=== PATIENT | male | born 1990 | race American Indian/Alaskan Native ===

== ENCOUNTER 2017-05-09 10:37 | Inpatient (IN) | payer OTHER ==
[2017-05-09] MEDS ORDERED: GEODON IM ONE (11:03)
[2017-05-09] MEDS ORDERED: WATER FOR INJ (PF) 10 ML ONE (11:12)
[2017-05-09] MEDS ORDERED: ATIVAN ONE (11:15)
[2017-05-09] MEDS ORDERED: BENADRYL ONE (11:17)
[2017-05-09] MEDS ORDERED: ATIVAN IM ONE (11:17)
[2017-05-09] MEDS ORDERED: BENADRYL IM ONE (11:17)
[2017-05-09] MEDS ORDERED: XYLOCAINE 2% INFILTRATI ONE (11:32)
[2017-05-09 11:59] LABS: Basophils % (Auto) 0.4 % (0.0-1.8); Eosinophils % (Auto) 0.1 % (0.0-4.3); Hematocrit 47.4 % (35.5-45.6); Hemoglobin 15.7 gm/dl (11.8-15.2); Mean Corpuscular HGB Conc 33 % (32-34); Mean Corpuscular Hemoglobin 31 pg (28-32); Mean Corpuscular Volume 94 fl (84-94); Platelet Count 126 K/mm3 (140-440); Red Blood Count 5.02 M/mm3 (3.65-5.03); Red Cell Distribution Width 13.8 % (13.2-15.2); White Blood Count 10.3 K/mm3 (4.5-11.0)
--- NOTE | 2017-05-09 12:02 | Cat Scan Report ---
CT scan of head without IV contrast: History: Trauma. Findings: Ventricles are normal in size and midline in location. No evidence of acute ischemia, hemorrhage or mass. No extra-axial fluid collection. Normal brainstem and cerebellum. Normal sinuses and mastoid air cells. Impression: No acute intracranial abnormality.
[2017-05-09 12:13] LABS: Creatine Kinase MB 11.8 ng/mL (0.0-4.0)
[2017-05-09 12:14] LABS: Alanine Aminotransferase 19 units/L (7-56); Albumin 4.5 g/dL (3.9-5); Albumin/Globulin Ratio 1.6 %; Alkaline Phosphatase 103 units/L (35-129); Anion Gap 25 mmol/L; BUN/Creatinine Ratio 6.42; Blood Urea Nitrogen 9 mg/dL (9-20); Calcium 8.9 mg/dL (8.4-10.2); Carbon Dioxide 17 mmol/L (22-30); Chloride 103.1 mmol/L (98-107); Glucose 83 mg/dL (75-100); Potassium 3.5 mmol/L (3.6-5.0); Sodium 142 mmol/L (137-145); Total Protein 7.3 g/dL (6.3-8.2)
[2017-05-09] MEDS ORDERED: NACL 0.9% 500 ML IR ONE (13:22)
[2017-05-09] MEDS ORDERED: NACL 0.9% 1000 ML 1,000 ML IV ONE (14:07)
[2017-05-09 17:15] LABS: Creatine Kinase MB 16.3 ng/mL (0.0-4.0)
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
[2017-05-09] MEDS ORDERED: ZOFRAN IV PRN (18:20)
[2017-05-09] MEDS ORDERED: PROVENTIL IH PRN (18:20)
[2017-05-09 18:56] LABS: Urine Drugs of Abuse Note Disclamer
[2017-05-09 19:07] LABS: Bilirubin,Urine NEG (Negative); Blood,Urine NEG (Negative); Ketones,Urine NEG (Negative); Leukocyte Esterase,Urine TR (Negative); Nitrite,Urine NEG (Negative); Protein,Urine <15 mg/dL mg/dL (Negative); Urobilinogen,Urine < 2.0 mg/dL (<2.0)
[2017-05-09] MEDS ORDERED: SODIUM BICARBONATE 150 MEQ in D5W 1,000 ML IV ONE (19:30)
[2017-05-09] MEDS: TYLENOL PO PRN (22:31)
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
[2017-05-10] MEDS ORDERED: ATIVAN IV PRN (10:16)
[2017-05-10 11:00] LABS: BUN/Creatinine Ratio 8.33; Blood Urea Nitrogen 10 mg/dL (9-20); Calcium 8.4 mg/dL (8.4-10.2); Carbon Dioxide 27 mmol/L (22-30); Chloride 103.3 mmol/L (98-107); Glucose 91 mg/dL (75-100); Potassium 3.7 mmol/L (3.6-5.0); Sodium 142 mmol/L (137-145)
[2017-05-10 11:04] LABS: Anion Gap 15 mmol/L
[2017-05-10 11:12] LABS: Creatine Kinase 4342 units/L (55-170)
[2017-05-10] MEDS: TYLENOL PO PRN ×2 (15:31→21:12)
[2017-05-10] MEDS: NACL 0.9% 1000 ML 1,000 ML IV SCH ×2 (19:10→23:55)
[2017-05-11] MEDS: NACL 0.9% 1000 ML 1,000 ML IV SCH ×4 (04:33→20:58)
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
[2017-05-11 08:42] LABS: Anion Gap 15 mmol/L; BUN/Creatinine Ratio 7.27; Blood Urea Nitrogen 8 mg/dL (9-20); Calcium 8.1 mg/dL (8.4-10.2); Carbon Dioxide 26 mmol/L (22-30); Chloride 107.5 mmol/L (98-107); Glucose 86 mg/dL (75-100); Potassium 4.2 mmol/L (3.6-5.0); Sodium 144 mmol/L (137-145)
[2017-05-11 08:56] LABS: Creatine Kinase 3285 units/L (55-170)
[2017-05-11] MEDS: TYLENOL PO PRN ×2 (14:22→20:58)
[2017-05-12] MEDS: NACL 0.9% 1000 ML 1,000 ML IV SCH ×2 (01:59→06:35)
[2017-05-12 06:52] LABS: Chloride 108.2 mmol/L (98-107); Potassium 4.1 mmol/L (3.6-5.0); Sodium 142 mmol/L (137-145)
[2017-05-12 06:53] LABS: Anion Gap 12 mmol/L; BUN/Creatinine Ratio 5.55; Blood Urea Nitrogen 5 mg/dL (9-20); Calcium 8.3 mg/dL (8.4-10.2); Carbon Dioxide 26 mmol/L (22-30); Creatine Kinase 1998 units/L (55-170); Glucose 90 mg/dL (75-100)
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
[2017-05-12 11:43] VITALS: BP 139/90
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
== END 2017-05-12 15:45 | DRG 564 ==
LOC: EEVIPCON 10:37 → ED 10:37 → 3A 18:20
PROVIDERS: ADMIT Internal Medicine; ATTEND Internal Medicine
PROC: 0HQ1XZZ Repair Face Skin, External Approach (ICD-10-PCS; principal; 2017-05-09)
DX: T79.6XXA Traumatic ischemia of muscle, initial encounter (principal); G93.41 Metabolic encephalopathy; E87.2 Acidosis; F23 Brief psychotic disorder; I10 Essential (primary) hypertension; S01.81XA Laceration without foreign body of other part of head, initial encounter; X58.XXXA Exposure to other specified factors, initial encounter; F10.10 Alcohol abuse, uncomplicated; F14.10 Cocaine abuse, uncomplicated; F12.10 Cannabis abuse, uncomplicated; E87.6 Hypokalemia; Y93.89 Activity, other specified; Y92.89 Other specified places as the place of occurrence of the external cause; Y99.8 Other external cause status; Z82.49 Family history of ischemic heart disease and other diseases of the circulatory system; Z71.51 Drug abuse counseling and surveillance of drug abuser
CPT/HCPCS: 36415; 70450; 80048; 80053; 80307; 80320; 81001; 82550; 82553; 82962; 83735; 84100; 85025; 93005; 93010; 96374; 99285; 99406; G0480; J1200; J2060; J3486; J7030; J7070

== ENCOUNTER 2018-09-29 18:19 | Emergency (ER) | payer SELFPAY ==
[2018-09-29 20:31] VITALS: BP 138/79
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
== END 2018-09-29 21:01 | disposition left against medical advice (07) ==
LOC: ED 18:19
DX: Z20.2 Contact with and (suspected) exposure to infections with a predominantly sexual mode of transmission (principal)
CPT/HCPCS: 99282

== ENCOUNTER 2019-01-10 18:50 | Emergency (ER) | payer SELFPAY ==
[2019-01-10] MEDS ORDERED: IBUPROFEN PO ONE ×2 (20:41→20:45)
--- NOTE | 2019-01-10 20:49 | XRay Report ---
PROCEDURE: RIGHT HAND, 2 VIEWS TECHNIQUE: RIGHT hand radiographs, AP and lateral views. CPT 98070-OK HISTORY: Pain COMPARISONS: None . FINDINGS: Fracture (s) and/or Dislocation(s): None . Alignment: Normal . Joint space(s): Normal . Soft tissues: Normal . Bone mineralization: There is diffuse sclerosis of the second proximal phalanx which could be due to osteoma. . Foreign bodies: None . IMPRESSION: There are no fractures or malalignments. . This document is electronically signed by Ant Isaac MD., January 10 2019 09:47:32 PM ET
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
[2019-01-10] MEDS ORDERED: PERCOCET 5/325 PO ONE (22:15)
[2019-01-10] MEDS ORDERED: BOOSTRIX IM ONE (22:17)
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
[2019-01-10] MEDS ORDERED: PERCOCET 5/325 ONE (22:18)
[2019-01-10 23:05] VITALS: BP 140/87
[2019-01-10] MEDS ORDERED: THERMAZENE 50 GRAM TP ONE (23:15)
== END 2019-01-10 23:07 | disposition home or self-care (01) ==
LOC: ED 18:50
DX: M79.641 Pain in right hand (principal); M79.662 Pain in left lower leg; M25.551 Pain in right hip; F17.200 Nicotine dependence, unspecified, uncomplicated; I10 Essential (primary) hypertension; E11.9 Type 2 diabetes mellitus without complications; M79.10 Myalgia, unspecified site; V89.2XXA Person injured in unspecified motor-vehicle accident, traffic, initial encounter; Y93.89 Activity, other specified; Y92.488 Other paved roadways as the place of occurrence of the external cause; Y99.8 Other external cause status
CPT/HCPCS: 72170; 90471; 90715